=== PATIENT | female | born 2000 ===

== ENCOUNTER 2021-02-23 13:00 | Observation (INO) | payer MEDICAID | END 2021-02-23 14:05 | disposition left against medical advice (07) | LOC: LDRP 13:00 | PROVIDERS: ADMIT Obstetrics & Gynecology; ATTEND Obstetrics & Gynecology | DX: O36.4XX0 Maternal care for intrauterine death, not applicable or unspecified (principal); Z3A.30 30 weeks gestation of pregnancy; Z37.1 Single stillbirth | CPT/HCPCS: 59025; 76805; 81002; G0378 ==